=== PATIENT | male | born 1970 | race African-American/Black ===

== ENCOUNTER 2020-05-11 14:38 | Inpatient (IN) ==
[2020-05-11] MEDS ORDERED: ASPIRIN 325 MG TABLET PO STA (15:19)
[2020-05-11 16:14] LABS: Basophils % 0.6 % (0.0-0.8); Eosinophils # 0.1 10*3/uL (0.0-0.87); Eosinophils % 0.8 % (0.00-10.9); Hematocrit 50.1 VOL% (42.0-52.0); Hemoglobin 16.7 GM/DL (14.0-18.0); Immature Granulocytes % 0.2 %; Immature Granulocytes Absolute 0.01 #; Lymphocytes # 2.4 10*3/uL (1.4-4.0); Lymphocytes % 37.8 % (21.2-54.2); Mean Corpuscular HGB Conc 33.3 GM/DL (32-36); Mean Corpuscular Volume 91.9 FL (87-102); Mean Platelet Volume 9.4 FL (9.6-12.0); Monocytes % 9.7 % (1.7-12.7); Neutrophils % 50.9 % (38.7-73.9); Platelet Count 250 T/CUMM (130-400); Red Blood Count 5.45 MC/CUMM (3.8-5.5); Red Cell Distribution Width 12.8 % (9.3-17.3); White Blood Count 6.2 T/CUMM (4-12)
[2020-05-11 16:24] LABS: PT Patient Result 10.4 SECS (9.8-11.9)
[2020-05-11] MEDS ORDERED: CLOPIDOGREL 75 MG TABLET PO STA (16:25)
[2020-05-11] MEDS ORDERED: SIMETHICONE CHEW 125 MG TABLET PO PRN (16:30)
[2020-05-11] MEDS ORDERED: traZODone 50 MG TABLET PO PRN (16:30)
[2020-05-11] MEDS ORDERED: GLUCAGON 1 MG VIAL IM PRN (16:30)
[2020-05-11] MEDS ORDERED: ALUMINUM/MAGNES/SIMETH MAX STR 30 ML UDCUP PO PRN (16:30)
[2020-05-11] MEDS ORDERED: diphenhydrAMINE CAP 25 MG CAPSULE PO PRN (16:30)
[2020-05-11] MEDS ORDERED: BISACODYL 5 MG TABLET PO PRN (16:30)
[2020-05-11] MEDS ORDERED: hydrALAZINE 20 MG/1 ML VIAL IV PRN (16:30)
[2020-05-11] MEDS ORDERED: DEXTROSE 50% 25 GM/50 ML VIAL IV PRN (16:30)
[2020-05-11] MEDS ORDERED: ZALEPLON 5 MG CAPSULE PO PRN (16:30)
[2020-05-11] MEDS ORDERED: guaiFENesin/DM ER 600-30 MG TABLET PO PRN (16:30)
[2020-05-11] MEDS ORDERED: ONDANSETRON 4 MG/2 ML VIAL IV PRN (16:30)
[2020-05-11] MEDS ORDERED: LACTULOSE 20 GM/30 ML UDCUP PO PRN (16:30)
[2020-05-11] MEDS ORDERED: CALCIUM CARBONATE CHEW 500 MG TABLET PO PRN (16:30)
[2020-05-11] MEDS ORDERED: NICOTINE 21 MG/24 HR PATCH TRANSDERM PRN (16:30)
[2020-05-11] MEDS ORDERED: MORPHINE 4 MG/1 ML VIAL IV PRN (16:30)
[2020-05-11] MEDS ORDERED: ACETAMINOPHEN 325 MG TABLET PO PRN (16:30)
[2020-05-11] MEDS ORDERED: DOCUSATE SODIUM 100 MG CAPSULE PO PRN (16:30)
[2020-05-11 16:36] LABS: Alanine Aminotransferase 15 U/L (16-61); Albumin 3.8 G/DL (3.4-5.0); Alkaline Phosphatase 72 U/L (45-117); Aspartate Amino Transferase 17 U/L (0-37); Bilirubin,Total < 0.39 MG/DL (0.2-1.0); Blood Urea Nitrogen 11 MG/DL (7-18); Estimated Glom Filtration Rate 86 ML/MIN; Glucose 77 MG/DL (74-106); Osmolality,Calculated 274.5 MOS/KG (273-304); Total Protein 7.7 G/DL (6.4-8.3)
[2020-05-11] MEDS: ENOXAPARIN 40 MG/0.4 ML SYRINGE SUBCUT SCH (17:15)
[2020-05-11] MEDS: SODIUM CHLORIDE 0.45% 1,000 ML IV SCH (17:18)
[2020-05-11] MEDS: hydrALAZINE 25 MG TABLET PO SCH (21:00)
[2020-05-11] MEDS ORDERED: ROSUVASTATIN 20 MG TABLET PO SCH (21:00)
[2020-05-11] MEDS ORDERED: SIMVASTATIN 10 MG TABLET PO SCH (21:00)
[2020-05-11] MEDS ORDERED: COENZYME Q10 100 MG CAPSULE PO SCH (21:00)
[2020-05-12 05:38] LABS: Basophils # 0.1 10*3/uL (0.0-0.2); Basophils % 0.9 % (0.0-0.8); Eosinophils % 0.7 % (0.00-10.9); Hemoglobin 16.8 GM/DL (14.0-18.0); Immature Granulocytes % 0.2 %; Immature Granulocytes Absolute 0.01 #; Lymphocytes # 2.2 10*3/uL (1.4-4.0); Lymphocytes % 37.5 % (21.2-54.2); Mean Corpuscular HGB Conc 33.6 GM/DL (32-36); Mean Corpuscular Volume 92.3 FL (87-102); Mean Platelet Volume 9.1 FL (9.6-12.0); Monocytes % 11.2 % (1.7-12.7); Neutrophils % 49.5 % (38.7-73.9); Platelet Count 241 T/CUMM (130-400); Red Blood Count 5.42 MC/CUMM (3.8-5.5); Red Cell Distribution Width 12.8 % (9.3-17.3); White Blood Count 5.8 T/CUMM (4-12)
[2020-05-12 06:17] LABS: Risk Ratio 4.22; Thyroid Stimulating Hormone 1.7 uIU/ml (0.358-3.74); VLDL CHOLESTEROL 15.4 MG/DL
[2020-05-12 07:13] LABS: Bilirubin,Urine Negative (Negative); Blood, Urine Negative (Negative); Glucose,Urine (UA) Negative (Negative); Ketones,Urine Negative (Negative); Mucus,Urine Occasional /LPF (Occasional); Nitrite,Urine Negative (Negative); Protein,Urine Negative; RBC,Urine 1 /HPF (0-4); Urine Appearance CLEAR (Clear); Urine Color Yellow (Yellow); Urine Specific Gravity 1.014 (1.001-1.035); Urine Urobilinogen < 2.0 EU/DL (0.2-1.0); WBC,Urine <1 /HPF (0-6)
[2020-05-12 07:18] LABS: Barbiturates Screen,Urine Negative (Negative); Benzodiazepines Screen,Urine Negative (Negative); Cannabinoid Screen,Urine Positive (Negative); Opiate Screen,Urine Negative (Negative); Phencyclidine Screen,Urine Negative (Negative)
[2020-05-12] MEDS ORDERED: CLOPIDOGREL 75 MG TABLET PO SCH (09:00)
[2020-05-12] MEDS ORDERED: ASPIRIN 325 MG TABLET PO SCH (09:00)
[2020-05-12] MEDS ORDERED: CHOLECALCIFEROL 5,000 UNIT TABLET PO SCH (09:00)
[2020-05-12] MEDS ORDERED: LISINOPRIL/HCTZ 20-12.5 MG TABLET PO SCH (09:00)
[2020-05-12] MEDS ORDERED: PANTOPRAZOLE 40 MG TABLET PO SCH (09:00)
[2020-05-12] MEDS: hydrALAZINE 25 MG TABLET PO SCH ×2 (11:54→16:19)
[2020-05-12] MEDS: SODIUM CHLORIDE 0.45% 1,000 ML IV SCH (15:13)
[2020-05-12] MEDS: ENOXAPARIN 40 MG/0.4 ML SYRINGE SUBCUT SCH (16:19)
[2020-05-12 17:36] VITALS: BP 158/98
== END 2020-05-12 18:45 | disposition home or self-care (01) ==
LOC: N.ED 14:38 → N.EDINP 16:30 → N.TELEN 20:08
PROVIDERS: ADMIT Hospitalist; ATTEND Hospitalist